=== PATIENT | female | born 1955 | race Caucasian/White ===

== ENCOUNTER → 2017-10-17 | Outpatient (CLI) | payer OTHER | LOC: COL.VAS 12:42 | DX: E04.1 Nontoxic single thyroid nodule (principal); I77.9 Disorder of arteries and arterioles, unspecified ==

== ENCOUNTER → 2019-02-25 | Outpatient (CLI) | payer OTHER | LOC: MC.RAD 10:39 | DX: Z12.31 Encounter for screening mammogram for malignant neoplasm of breast (principal) ==

== ENCOUNTER → 2021-01-11 | Outpatient (CLI) | payer OTHER | LOC: MC.RAD 09:00 | DX: Z12.31 Encounter for screening mammogram for malignant neoplasm of breast (principal) ==

== ENCOUNTER → 2021-01-21 | Outpatient (CLI) | payer OTHER | LOC: MC.RAD 01-14 11:00 | DX: R92.0 Mammographic microcalcification found on diagnostic imaging of breast (principal) ==

== ENCOUNTER → 2021-02-02 | Outpatient (CLI) | payer OTHER | LOC: MC.RAD 07:44 | DX: R92.0 Mammographic microcalcification found on diagnostic imaging of breast (principal); Z98.82 Breast implant status ==

== ENCOUNTER → 2021-03-14 | Outpatient (CLI) | payer OTHER ==
[~2021-03-14] MED LIST: 00186-0372-20 IH; COZAAR 50MG50 MG/TAB PO; GLUCOPHAGE500 MG/TAB PO; LEVOXYL0.088 MG PO; MICROZIDE12.5 MG PO
== END ==
LOC: MC.RAD 13:00
DX: C50.911 Malignant neoplasm of unspecified site of right female breast (principal)
CPT/HCPCS: 32603; C1769

== ENCOUNTER 2021-03-15 10:54 | Day surgery (SDC) | payer OTHER ==
[~2021-03-15] VITALS: Ht 160 cm; Wt 79.4 kg
[2021-03-15 11:45] VITALS: BP 139/71; PULSE 64; TEMP 98.2
[2021-03-15] MEDS ORDERED: COZAAR 50MG50 MG/TAB PO ×2 (11:47→11:48)
[2021-03-15] MEDS ORDERED: GLUCOPHAGE500 MG/TAB PO (11:47)
[2021-03-15] MEDS ORDERED: 00186-0372-20 IH (11:49)
[2021-03-15] MEDS ORDERED: LEVOXYL0.088 MG PO (11:49)
[2021-03-15] MEDS ORDERED: MICROZIDE12.5 MG PO (11:49)
[2021-03-15 14:12] VITALS: BP 101/77; PULSE 78; TEMP 96.6
--- NOTE | 2021-03-15 14:12 | NUR ---
Patient arrived from PACU on a cart, escorted by Talisha CHAO. Patient is sleepy and mildly confused, however she knows where she is and what day of the week it is. Vitals obtained. Lights dimmed to provide comfort and allow the patient to rest. is still present. ZHANNA Navarro obtained report.
[2021-03-15 14:27] VITALS: BP 145/67; PULSE 66
--- NOTE | 2021-03-15 14:27 | NUR ---
Patient continues to sleep. Vitals obatined. Call morgan is within reach
[2021-03-15 14:42] VITALS: BP 126/578; PULSE 59
--- NOTE | 2021-03-15 14:42 | NUR ---
Patient is more alert, oriented x3. Patient is tolerating water and apple juice well. Patient requested a blueberry muffin. Vitals obtained.
[2021-03-15 14:57] VITALS: BP 140/75; PULSE 89
--- NOTE | 2021-03-15 14:57 | NUR ---
is at bedside with the patient, holding her hand. Patient was happy that the muffin was warm. Vitals obtained. SO2 disconnected to allow the patient to eat freely. Call morgan is within reach.
--- NOTE | 2021-03-15 15:10 | NUR ---
Patient finished her muffin and is tolerating it well.
--- NOTE | 2021-03-15 15:15 | NUR ---
Patient was escorted to the bathroom by ZHANNA Hernández and her . Patient was able to successfully void. Patient stated feeling a little dizzy by the time we got to the bathroom, however she did not want to stop and sit. Patient stated desire to be discharged.
--- NOTE | 2021-03-15 15:27 | NUR ---
IV was discontinued at this time. Pressure bandage applied. Catheter tip intact. No redness or swelling noted. Patient denies pain.
--- NOTE | 2021-03-15 15:30 | NUR ---
Patient changed into her personal clothes with assistance from her .
--- NOTE | 2021-03-15 15:45 | NUR ---
Discharge instructions, educational material and wound care reviewed at this time. Patient and her verbalized understanding of information, and the patient signed the related paperwork. Both denied having any further questions or concerns.
--- NOTE | 2021-03-15 15:55 | NUR ---
Patient was escorted out to the main patient entrence by ZHANNA Hernández and transferred into the care of her at this time. Patient has her discharge folder in hand and is secure in the front seat, wearing her seat belt.
== END 2021-03-15 15:55 | disposition home or self-care (01) ==
LOC: SDCO 10:54
DX: D05.11 Intraductal carcinoma in situ of right breast (principal); Z17.0 Estrogen receptor positive status [ER+]; E11.9 Type 2 diabetes mellitus without complications; Z79.84 Long term (current) use of oral hypoglycemic drugs; E07.9 Disorder of thyroid, unspecified; I10 Essential (primary) hypertension; J45.909 Unspecified asthma, uncomplicated; E78.00 Pure hypercholesterolemia, unspecified; Z20.822 Contact with and (suspected) exposure to COVID-19; Z79.890 Hormone replacement therapy; Z79.899 Other long term (current) drug therapy; Z79.51 Long term (current) use of inhaled steroids
CPT/HCPCS: A4648; J7030